=== PATIENT | female | born 1960 | race Caucasian/White ===

== ENCOUNTER 2020-08-20 20:04 | Emergency (ER) | payer BC ==
[~2020-08-20] VITALS: Ht 162.6 cm; Wt 74.0 kg
--- NOTE | 2020-08-20 20:26 | NUR ---
BIBA FROM HOME FOR N/V/D FOR LAST 7 DAYS AND ABDOMINAL PAIN AND CRAMPING. DENIES CP AND SOB ATTACHED TO CARD/SP02/BP MONITORS. VSS. PT APPEARS IN PAIN. BED IN LOW POSITION, RAILS ENGAGED. CALL LIGHT ON LAP. AT BEDSIDE. WCTM PT GIVEN 100MCG OF FENTANYL, 4MG ZOFRAN, 700 ML OF NS.
[2020-08-20] MEDS ORDERED: HYDROmorphone 1 MG/ML, 1ML INJ ONE (20:55)
[2020-08-20] MEDS ORDERED: ONDANSETRON 2MG/ML, 2ML ONE (20:55)
[2020-08-20 21:00] LABS: BASOPHILS % (AUTO) 0 % (0-1); EOSINOPHILS % (AUTO) 0 % (1-7); LYMPHOCYTES % (AUTO) 15 % (22-44); MEAN CORPUSCULAR HEMOGLOBIN 30.8 pg (27.0-34.8); MEAN CORPUSCULAR HGB CONC 34.9 g/dL (32.4-35.8); MEAN PLATELET VOLUME 8.7 fL (7.4-10.4); MONOCYTES % (AUTO) 10 % (2-9); NEUTROPHILS % (AUTO) 75 % (42-75); PLATELET COUNT 158 x10^3/uL (130-400); RED BLOOD COUNT 5.21 x10^6/uL (3.82-5.3); RED CELL DISTRIBUTION WIDTH 12.9 % (9.6-15.2)
[2020-08-20] MEDS ORDERED: SODIUM CHLORIDE FLUSH 10ML SYR IVF ONE (21:00)
[2020-08-20] MEDS ORDERED: ONDANSETRON 2MG/ML, 2ML IVPush ONE (21:00)
[2020-08-20] MEDS ORDERED: SODIUM CHLORIDE 0.9% 1,000ML IVBOLUS ONE (21:00)
[2020-08-20] MEDS ORDERED: HYDROmorphone 1 MG/ML, 1ML INJ IV ONE (21:00)
[2020-08-20 21:08] LABS: ALANINE AMINOTRANSFERASE 34 U/L (12-78); ALBUMIN 3.2 g/dL (3.4-5.0); ANION GAP 8 mmol/L (5-15); CALCIUM 8.6 mg/dL (8.5-10.1); CHLORIDE 107 mmol/L (98-107); CREATININE 0.86 mg/dL (0.55-1.02)
--- NOTE | 2020-08-20 21:08 | NUR ---
PT TOLERATING MEDICATIONS WELL. PT APPEARS TO BE IN LESS PAIN. 07/26 ATTACHED TO MONITORS. VSS. WCTM. AT BEDSIDE
--- NOTE | 2020-08-20 21:09 | NUR ---
PT STATES SHE CANNOT URINATE RIGHT NOW.
[2020-08-20 21:11] LABS: ALKALINE PHOSPHATASE 56 U/L (45-117); BILIRUBIN,TOTAL 0.5 mg/dL (0.2-1.0); TOTAL PROTEIN 7.1 g/dL (6.4-8.2)
--- NOTE | 2020-08-20 21:17 | NUR ---
PT OFF UNIT IN IMAGING.
--- NOTE | 2020-08-20 21:46 | NUR ---
PT AMBULATED TO BATHRROMN WITH TO OBTAIN UA. PT GIVEN YELLOW NON SLID SOCKS. PT TOLERATING WALK WELL. WCTM
[2020-08-20 22:25] LABS: MICROSCOPIC INDICATED
--- NOTE | 2020-08-20 22:44 | NUR ---
PT PUT ONTO RESP ISOLATION. CART OUTSIDE AND SIGN IN THE SLOT BY THE DOOR. PT RESTING IN BED. NADN. VSS. ATTACHED TO MONITORS. WCTM. PT GIVEN BLANKETS.
[2020-08-20 23:15] VITALS: BP 149/71
--- NOTE | 2020-08-20 23:47 | NUR ---
Patient/Caregiver given discharge instructions and they have confirmed that they understand the instructions. Patient ambulatory with steady gait. NAD, all questions answered appropriately, denies additional needs at this time. No personal belongings left in room after discharge.
== END 2020-08-21 00:01 | disposition home or self-care (01) ==
LOC: ED 20:34
DX: U07.1 COVID-19 (principal); R11.2 Nausea with vomiting, unspecified; R19.7 Diarrhea, unspecified; R10.32 Left lower quadrant pain; E86.0 Dehydration; F17.200 Nicotine dependence, unspecified, uncomplicated; Z90.710 Acquired absence of both cervix and uterus
CPT/HCPCS: 36415; 71046; 74176; 80053; 81001; 83690; 85025; 87086; 96361; 96374; 96375; 99285; J1170; J2405; J7030; U0003; U0005

== ENCOUNTER 2020-08-24 09:30 | Emergency (ER) | payer BC ==
[~2020-08-24] VITALS: Ht 162.6 cm; Wt 75.0 kg
--- NOTE | 2020-08-24 09:51 | NUR ---
PT AMBULATORY TO ROOM 33 W/ C/O N/V/D STARTED 10 DAYS AGO. DENIES CP/SOB/DIZZINESS/LIGHTHEADEDNESS. PT STATES SHE GOT TESTED FOR COVID 3 DAYS AGO AND WAS FOUND TO BE POSITIVE. PT STATES SHE FEELS EXTREMELY DEHYDRATED. PT RESTING ON GURNEY. NADN. AWARE OF NEED FOR UA SAMPLE. QUE VENEGAS AT BEDSIDE FOR EVAL.
[2020-08-24] MEDS ORDERED: SODIUM CHLORIDE 0.9% 1,000ML IVBOLUS ONE (10:00)
[2020-08-24] MEDS ORDERED: ONDANSETRON 2MG/ML, 2ML IVPush ONE (10:00)
[2020-08-24] MEDS ORDERED: SODIUM CHLORIDE FLUSH 10ML SYR IVF ONE (10:00)
[2020-08-24] MEDS ORDERED: ONDANSETRON 2MG/ML, 2ML ONE (10:06)
[2020-08-24 10:15] LABS: BASOPHILS % (AUTO) 0 % (0-1); EOSINOPHILS % (AUTO) 0 % (1-7); LYMPHOCYTES % (AUTO) 13 % (22-44); MEAN CORPUSCULAR HEMOGLOBIN 30.9 pg (27.0-34.8); MEAN PLATELET VOLUME 8.1 fL (7.4-10.4); MONOCYTES % (AUTO) 8 % (2-9); NEUTROPHILS % (AUTO) 78 % (42-75); PLATELET COUNT 256 x10^3/uL (130-400); RED BLOOD COUNT 5.22 x10^6/uL (3.82-5.3); RED CELL DISTRIBUTION WIDTH 12.8 % (9.6-15.2)
[2020-08-24 10:22] LABS: ALANINE AMINOTRANSFERASE 35 U/L (12-78); ALBUMIN 3.3 g/dL (3.4-5.0); ANION GAP 10 mmol/L (5-15); CALCIUM 9.3 mg/dL (8.5-10.1); CHLORIDE 104 mmol/L (98-107); CREATININE 0.73 mg/dL (0.55-1.02)
[2020-08-24 10:24] LABS: ALKALINE PHOSPHATASE 59 U/L (45-117); BILIRUBIN,TOTAL 0.8 mg/dL (0.2-1.0); TOTAL PROTEIN 7.3 g/dL (6.4-8.2)
[2020-08-24 10:30] LABS: MICROSCOPIC INDICATED
--- NOTE | 2020-08-24 11:05 | NUR ---
PT RESTING ON GURNEY. NADN. RIVAS.
--- NOTE | 2020-08-24 11:06 | NUR ---
PT CHART REVIEWED AND PLACED FOR RECHECK.
--- NOTE | 2020-08-24 11:23 | NUR ---
PT PROVIDED W/ WATER FOR P[O CHALLENGE.
[2020-08-24] MEDS ORDERED: POTASSIUM CHLORIDE 20 MEQ TAB.ER.PRT PO ONE (11:30)
--- NOTE | 2020-08-24 11:38 | NUR ---
PT TOLERATED PO FLUIDS W/O ISSUES. ERP DR. QUIROGA NOTIFIED.
[2020-08-24] MEDS ORDERED: POTASSIUM CHLORIDE 20 MEQ TAB.ER.PRT ONE (11:43)
[2020-08-24 11:54] VITALS: BP 145/71
--- NOTE | 2020-08-24 11:54 | NUR ---
QUE VENEGAS AT BEDSIDE FOR RE-EVAL.
== END 2020-08-24 12:47 | disposition home or self-care (01) ==
LOC: ED 09:42
DX: U07.1 COVID-19 (principal); K52.9 Noninfective gastroenteritis and colitis, unspecified; E87.6 Hypokalemia; R94.31 Abnormal electrocardiogram [ECG] [EKG]; Z90.710 Acquired absence of both cervix and uterus
CPT/HCPCS: 36415; 80053; 81001; 83690; 85025; 93005; 96361; 96374; 99284; J2405; J7030